=== PATIENT | female | born 1975 | race Caucasian/White ===

== ENCOUNTER 2019-03-04 19:09 | Emergency (ER) | payer OTHER ==
[2019-03-04 19:44] VITALS: BP 171/73
--- NOTE | 2019-03-04 19:51 | UC ---
Respiratory Complaint HPI - HPI Summary HPI Summary: Cough, nasal and chest congestion, b/l ear congestion, headache, short of breath , cough getting progressively worse. - History of Current Complaint Chief Complaint: UCGeneralIllness Stated Complaint: COUGH, CONGESTION Hx Obtained From: Patient Hx Last Menstrual Period: 02/27/19 ?: No Onset/Duration: Sudden Onset, Lasting Days Timing: Constant Severity Initially: Moderate Severity Currently: Moderate Pain Intensity: 5 Character: Cough: Nonproductive Aggravating Factors: Exertion, Deep Breaths, Recumbent Position Associated Signs And Symptoms: Positive: Wheezing, Nasal Congestion, Sinus Discomfort - Allergies/Home Medications Allergies/Adverse Reactions: Allergies Allergy/AdvReac Type Severity Reaction Status Date / Time No Known Allergies Allergy Verified 03/04/19 19:36 Home Medications: Home Medications D-Methorphan/PE/Acetaminophen [Theraflu Severe Cold Mult 20-10-500 mg] 1 jose roberto PO DAILY PRN 03/04/19 [History Confirmed 03/04/19] Diclofenac Potassium 50 mg PO BID 03/04/19 [History Confirmed 03/04/19] GuaiFENesin DM 100 mg/10 mg [Robitussin DM 100 mg/10 mg in 5 ml] 20 ml PO Q6H PRN 03/04/19 [History Confirmed 03/04/19] Ibuprofen TAB* [Advil TAB*] 800 mg PO Q6H PRN 03/04/19 [History Confirmed ] Menthol [[place] Cough Drops Sugar F] 5.8 mg MT DAILY PRN 03/04/19 [History Confirmed 03/04/19] PMH/Surg Hx/FS Hx/Imm Hx Previously Healthy: Yes - Surgical History Surgical History: None - Family History Known Family History: Positive: Hypertension - Social History Alcohol Use: Rare Substance Use Type: None Smoking Status (MU): Never Smoked Tobacco Review of Systems All Other Systems Reviewed And Are Negative: Yes ENT: Positive: Ear Ache, Nasal Discharge, Sinus Congestion Respiratory: Positive: Shortness Of Breath, Cough Is Patient Immunocompromised?: No Physical Exam Triage Information Reviewed: Yes Appearance: Well-Nourished, Ill-Appearing, Pain Distress Vital Signs: Initial Vital Signs Temp 97.7 F 03/04/19 19:40 Pulse 59 03/04/19 19:40 Resp 16 03/04/19 19:40 BP 171/73 03/04/19 19:40 Pulse Ox 98 03/04/19 19:40 Vital Signs Reviewed: Yes Eye Exam: Normal ENT: Positive: Pharyngeal erythema, Nasal drainage, TM bulging, Tonsillar swelling Dental Exam: Normal Respiratory Exam: Normal Respiratory: Positive: Chest non-tender, No respiratory distress, Wheezing, Inspiration Cardiovascular Exam: Normal Cardiovascular: Positive: RRR, No Murmur, Pulses Normal Abdominal Exam: Normal Abdomen Description: Positive: Nontender, No Organomegaly, Soft Musculoskeletal Exam: Normal Neurological Exam: Normal Psychological Exam: Normal Skin Exam: Normal Respiratory Course/Dx - Course Course Of Treatment: hx obtained, exam performed, meds reviewed, - Differential Dx/Diagnosis Differential Diagnosis/HQI/PQRI: Bronchitis, Sinusitis Provider Diagnosis: Sinusitis, Bronchitis Discharge ED - Sign-Out/Discharge Documenting (check all that apply): Patient Departure All imaging exams completed and their final reports reviewed: No Studies - Discharge Plan Condition: Stable Disposition: HOME Prescriptions: predniSONE [Prednisone 20 MG TAB] 40 mg PO DAILY #10 tablet Patient Education Materials: Sinusitis (ED) Referrals: Christiano Lo MD [Primary Care Provider] - Additional Instructions: 1. take the medication as prescribed. 2. Increae fluids 3. Nasal saline spray to keep nares moist, humdifier is also helpful 4. Ibuprofen for pain and fever. 5. Follow up if not improving in the next few days. - Billing Disposition and Condition Condition: STABLE Disposition: Home
[2019-03-04] MEDS ORDERED: Albuterol 2.5 MG/3 ML NEB.SOL* (0.083%) INH ONE (19:54)
[2019-03-04] MEDS ORDERED: Amoxicillin PO (*) 875 MG TAB PO SCH (21:00)
== END 2019-03-04 20:25 | disposition home or self-care (01) ==
LOC: UCCORT 19:09
DX: J32.9 Chronic sinusitis, unspecified (principal); J40 Bronchitis, not specified as acute or chronic; H92.03 Otalgia, bilateral
CPT/HCPCS: 99202; G0463